=== PATIENT | male | born 1975 | race Caucasian/White ===

== ENCOUNTER 2025-05-10 19:09 | Inpatient (IN) | payer BC ==
--- NOTE | 2025-05-10 19:27 | P.CRDCN ---
History of Present Illness Consult date: 05/10/25 History of present illness: History of Present Illness: The patient is a 50-year-old male with a history of hypertension who presented with symptoms of chest discomfort. He started to have discomfort yesterday in the chest, the left arm and the jaw and subsequently got better but reoccurred today so he presented to [facility] and his EKG was consistent with inferior wall myocardial infarction. Patient denies any prior similar symptoms. He is asymptomatic at this time. He denies any dizziness or palpitation no peripheral edema, no PND or orthopnea. He is relatively active physically without any symptoms on a regular basis. He denies any prior similar symptoms and no history of PND orthopnea or peripheral edema. He smokes marijuana but no tobacco. He has a history of hypertension, no diabetes or documented hyperlipidemia. He is pain-free at this time Medications: Lotrel Review of Systems: Respiratory: No history of asthma, bronchitis or recent cough. GI: No nausea or vomiting . No history of peptic ulcer disease. No recent GI bleed. : No hematuria or dysuria. Nervous System: No stroke or seizure. Physical Examination: 50-year-old male, alert oriented no apparent distress,Blood pressure 130/70, Heart rate 80 Head: Normocephalic. Eyes: Sclerae nonicteric. Neck: Good carotid upstroke, no bruit, no jugular venous distention. Lungs: Clear to auscultation. Heart: Regular rate and rhythm, S1-S2, no S3, no rub. No murmur. Abdomen: Soft nontender, positive bowel sounds no organomegaly. Extremities: No edema, intact distal pulses. Labs: Pending EKG: Sinus mechanism with QS in [address] elevation of 1 to 1-1/2 mm and poor R wave progression Impression: 1. Acute inferior wall myocardial infarction, probably started yesterday 2. History of hypertension 3. Marijuana use Plan: 1. Proceed with emergent cardiac catheterization, the risks and the complications were discussed with the patient who is in full understanding and agreement 2. Obtain an echocardiogram with Doppler 3. Depending on the results of the testing further recommendations will be made 4. Thank you for this consult we will follow with you
[2025-05-10] MEDS: IV FLUID CONTINUATION 1,000 ML IV ONE (19:30)
[2025-05-10] MEDS: fentaNYL (PF) 50 MCG/ML 2 ML AMP IVP ONE (19:30)
[2025-05-10] MEDS: LIDOCAINE 1% INJ 10MG/ML (20 ML MDV) SQ ONE (19:34)
[2025-05-10] MEDS: VERAPAMIL SYRINGE (5 MG/10 ML) INTRAARTER ONE (19:35)
[2025-05-10] MEDS: HEPARIN SODIUM 1,000 UN/ML (10ML VL) IV ONE (19:40)
[2025-05-10] MEDS: PRASUGREL 10 MG TAB PO ONE (19:45)
[2025-05-10] MEDS: IOPAMIDOL-370 100ML BTL INJ ONE ×3 (19:50→20:48)
[2025-05-10] MEDS: MIDAZOLAM 2 MG/2 ML VIAL IVP ONE (20:22)
[2025-05-10] MEDS ORDERED: RX INFO: IV CONTRAST WAS GIVEN 1 EACH MISC MISCELLANE PRN (21:05)
[2025-05-10] MEDS ORDERED: ATROPINE SULFATE 0.1 MG/ML 10ML SYRINGE IV PRN (21:05)
[2025-05-10] MEDS ORDERED: MAG HYDROX/AL HYDROX/SIMETH 30 ML CUP PO PRN (21:05)
[2025-05-10] MEDS ORDERED: NITROGLYCERIN SL TABS 0.4 MG TAB SUBLINGUAL PRN (21:05)
--- NOTE | 2025-05-10 21:15 | P.CARDCATH ---
Date of Procedure: 05/10/25 Description of Procedure: Cardiac Catheterization: The patient is a 50-year-old male with a history of hypertension who presented to [facility] with an acute inferior wall myocardial infarction. He was transferred to [facility]. Recommendations were made regarding cardiac catheterization, the risks and the complications were discussed with the patient who is in full understanding and agreement. Procedure Description: Patient was brought to helper animal laboratory in fasting semi-sedated state after receiving Fentanyl and Benadryl achieiving moderate conscious sedated state. Using Xylocaine Anesthesia and modified Seldinger technique, a 6-English sheath was introduced in the right radial artery . Subsequently, selective coronary angiography was performed using a 5-English 3.5 bend left Yash catheter and 6 English AL 0.75 guiding catheter. Multiple views of the coronary artery including hemiaxial views were obtained. The 5 English pigtail catheter was used to cross the aortic valve and LVEDP was calculated. PCI: Using the 6 English AL 0.75 guiding catheter and after cannulating the right coronary ostium at the 0.014 BMW J-wire was advanced into the distal RCA. Subsequently 2.5 x 12 mm trek balloon was advanced and 1 inflation in the mid RCA at 8 whitney was done. The balloon was advanced distally and with the help of the balloon the wire was advanced into the PLV. An inflation with the balloon was performed at 8 whitney. Subsequently the balloon was removed and a 0.014 BMW J- wire with a microcatheter super cross was advanced and the wire was advanced into the PDA. The balloon was advanced over the PDA and 2 inflation at 8 whitney was done. Subsequently the balloon was removed and a [place] eye IVUS catheter was introduced and imaging was performed and revealed the distal lumen in the PLV of about 3 mm and in the RCA a 4 to 4.2 mm with mild to moderate calcifications. After removing the catheter a 2.75 x 28 mm Xience Skypoint stent was deployed in the distal RCA into the PLV at 16 whitney. After removing the balloon the wire in the PDA was removed. Repeat IVUS imaging was performed and subsequently a 4.0 x 38 mm Xience berhane point stent was deployed distally overlapping the first stent at 16 whitney and another 4.0 x 28 mm Xience berhane point was deployed in the proximal stent segment at 16 whitney. After removing the balloon repeat IVUS imaging was performed and subsequently 3.5 x 15 mm NC trek balloon was advanced and inflations in the distal segment of the stent at 10 whitney were done and after removing the balloon a 4.0 x 20 mm NC trek balloon was advanced and inflations in the mid and proximal RCA were done at 12 whitney. After the last inflation the wire was removed images were obtained and revealed stable successful stenting. Following that, catheter and sheath were removed. Hemostasis was obtained with deployment of vascular band . There was no immediate complication. Patient was returned to room in stable condition. Of note, the patient received a total of 9500 units of intravenous heparin as well as intra-arterial verapamil. He received an oral loading dose of prasugrel. His ACT was followed. He was pain-free at the end of the procedure. Findings: Left main: This is a large size vessel, bifurcating into LAD and left circumflex, left main has no obstructive disease LAD: This is a large size vessel, reaching to the apex giving rise to a large diagonal branch proximally. The LAD and the diagonal branch have no evidence of high-grade stenosis Left circumflex: This is a nondominant vessel, large in caliber, giving rise to 2 obtuse marginal branch. The left circumflex has mild intimal disease with no high-grade stenosis RCA: This is a large dominant vessel, bifurcating distally to PDA and PLV. The mid RCA has 80% stenosis. Distally at the bifurcation of the PDA and the PLV there is no forward flow. Retrograde filling was seen through collaterals from the LAD Left Ventriculogram: Not performed Hemodynamics: There was no gradient across the aortic valve, LVEDP was 25-28 mmHg Conclusion: 1. Severe stenosis in the mid RCA with total occlusion distally and contralateral collaterals 2. Mild disease in the left circumflex 3. Elevated LVEDP 4. Successful stenting of the proximal, mid and distal RCA with reduction of stenosis from 100% distally to less than 5% and in the midsegment from 80% to less than 5% with IVUS imaging and NJ-3 flow. Recommendations: The patient will continue on aspirin and prasugrel without any interruption for 1 year in addition to aggressive coronary risks modification, attempting to maintain LDL below 70 mg/dL. The findings and the recommendations were discussed with the patient and the family and they were in full understanding and agreement. Duration of sedation is 76 minutes.
[2025-05-10 21:16] LABS: Glucose,Whole Blood 112 mg/dL (70-110)
[2025-05-11] MEDS: ACETAMINOPHEN TAB 325 MG TAB PO PRN (00:33)
[2025-05-11] MEDS: ZOLPIDEM 5 MG TAB PO PRN (00:35)
[2025-05-11] MEDS: SODIUM CHLORIDE 0.9% 1,000 ML in EMPTY BAG 1 BAG IV SCH (00:36)
[2025-05-11 00:52] LABS: Basophils # (A) 0.05 10*3/uL (0.00-0.10); Basophils % (A) 0.5 %; Eosinophils # (A) 0.21 10*3/uL (0.04-0.35); Eosinophils % (A) 1.9 %; HCT 35.3 % (39.6-50.0); HGB 12.3 g/dL (13.0-17.0); Lymphocytes # (A) 2.01 10*3/uL (0.90-5.00); Lymphocytes % (A) 18.2 %; MCH 30.8 pg (27.0-32.0); MCHC 34.8 g/dL (32.0-37.0); MCV 88.3 fL (80.0-97.0); Monocytes # (A) 0.81 10*3/uL (0.20-1.00); Monocytes % (A) 7.3 %; Neutrophils # (A) 7.93 10*3/uL (1.80-7.70); Neutrophils % (A) 71.7 %; Platelet Count 263 10*3/uL (140-440); RBC 4.00 10*6/uL (4.40-5.60); RDW 13.1 % (11.5-14.5); WBC 11.05 10*3/uL (4.50-10.00)
[2025-05-11 01:42] LABS: African American GFR (CKD) >90 (>60 ml/min/1.73 sqM); Anion Gap 8 mmol/L; Blood Urea Nitrogen 6 mg/dL (9-20); Calcium 8.9 mg/dL (8.4-10.2); Carbon Dioxide 25 mmol/L (22-30); Chloride 103 mmol/L (98-107); Glucose 122 mg/dL (74-99); Magnesium 1.9 mg/dL (1.6-2.3); Non-African American GFR(CKD) >90 (>60 ml/min/1.73 sqM); Potassium 4.0 mmol/L (3.5-5.1); Sodium 136 mmol/L (137-145)
[2025-05-11 06:05] LABS: African American GFR (CKD) >90 (>60 ml/min/1.73 sqM); Anion Gap 8 mmol/L; Blood Urea Nitrogen 6 mg/dL (9-20); Calcium 8.9 mg/dL (8.4-10.2); Carbon Dioxide 25 mmol/L (22-30); Chloride 103 mmol/L (98-107); Glucose 109 mg/dL (74-99); Non-African American GFR(CKD) >90 (>60 ml/min/1.73 sqM); Potassium 3.7 mmol/L (3.5-5.1); Sodium 136 mmol/L (137-145)
[2025-05-11] MEDS ORDERED: Potassium Replacement Protocol 1 EACH MISC MISCELLANE PRN (07:07)
[2025-05-11] MEDS ORDERED: Magnesium Replacement Protocol 1 EACH MISC MISCELLANE PRN (07:07)
--- NOTE | 2025-05-11 07:27 | P.PN ---
Subjective Progress Note Date: 05/11/25 PROGRESS NOTE The patient is a 50-year-old male with a history of hypertension who presented with symptoms of chest discomfort. He started to have discomfort yesterday in the chest, the left arm and the jaw and subsequently got better but reoccurred today so he presented to [facility] and his EKG was consistent with inferior wall myocardial infarction. Patient denies any prior similar symptoms. He is asym ptomatic at this time. He denies any dizziness or palpitation no peripheral edema, no PND or orthopnea. He is relatively active physically without any symptoms on a regular basis. He denies any prior similar symptoms and no history of PND orthopnea or peripheral edema. He smokes marijuana but no tobacco. He has a history of hypertension, no diabetes or documented hyperlipidemia. He is pain-free at this time May 11: The patient feels well this morning, he denies any chest discomfort, dizziness or palpitations. Hemodynamically he is stable. He is status post stenting of the proximal mid and distal RCA. He has no evidence of ventricular arrhythmia. His urine output has been good. He has no dyspnea. He continues to be in sinus mechanism Medications: Aspirin, Effient 10 mg daily, metoprolol tartrate 25 mg twice a day, bupropion 300 mg daily, Lipitor 80 mg daily, Protonix PHYSICAL EXAMINATION: Blood pressure 129/87 heart rate 89 LUNGS: Clear to auscultation HEART: Regular rate and rhythm, S1, S2. No S3. No systolic murmur ABDOMEN: Soft, nontender, no organomegaly EXTREMETIES: No edema, right radial pulse intact LAB: Potassium 3.7, BUN 6, creatinine 0.74 IMPRESSION: 1. Status post acute inferior wall myocardial infarction and stenting of the RCA 2. History of hypertension PLAN: 1. Obtain an echocardiogram with Doppler 2. Follow blood pressure and adjust medical regimen 3. Increase physical activity 4. Transfer to telemetry 5. Depending on his progress further recommendations will be made Objective - Vital Signs Vital signs: Vital Signs Temp 98.9 F 05/11/25 04:00 Pulse 89 05/11/25 07:00 Resp 20 05/11/25 07:00 BP 129/87 05/11/25 07:00 Pulse Ox 94 L 05/11/25 07:00 FiO2 Intake & Output 05/10/25 05/11/25 05/11/25 18:59 06:59 18:59 Intake Total 1664 Output Total 1200 650 Balance 464 -650 Weight 107.9 kg Intake: IV 800 Intake, IV Titration 864 Amount Sodium Chloride 0.9% 1, 864 000 ml In Empty Bag 1 bag @ 1 ML/KG/HR 108 mls/hr IV .Q9H16M [facility] Rx#: [id number] Output: Urine 1200 650 Other: Voiding Method Urinal # Voids 0 1 - Labs CBC & Chem 7: 05/11/25 00:43 05/11/25 05:23 Labs: Abnormal Lab Results - Last 24 Hours (Table) 05/10/25 05/11/25 05/11/25 Range/Units 21:14 00:43 00:43 WBC 11.05 H (4.50-10.00) 10*3/uL RBC 4.00 L (4.40-5.60) 10*6/uL Hgb 12.3 L (13.0-17.0) g/dL Hct 35.3 L (39.6-50.0) % Neutrophils # 7.93 H (1.80-7.70) 10*3/uL Sodium 136 L (137-145) mmol/L BUN 6 L (9-20) mg/dL Glucose 122 H (74-99) mg/dL POC Glucose (mg/dL) 112 H (70-110) mg/dL 05/11/25 Range/Units 05:23 WBC (4.50-10.00) 10*3/uL RBC (4.40-5.60) 10*6/uL Hgb (13.0-17.0) g/dL Hct (39.6-50.0) % Neutrophils # (1.80-7.70) 10*3/uL Sodium 136 L (137-145) mmol/L BUN 6 L (9-20) mg/dL Glucose 109 H (74-99) mg/dL POC Glucose (mg/dL) (70-110) mg/dL
[2025-05-11] MEDS: buPROPion XL 300 MG TAB.ER.24H PO SCH (08:59)
[2025-05-11] MEDS: METOPROLOL TARTRATE 25 MG TAB PO SCH (08:59)
[2025-05-11] MEDS: MAGNESIUM SULFATE-D5W PMX 1 GM in DEXTROSE/WATER 1 100ML.BAG IVPB ONE (08:59)
[2025-05-11] MEDS: POTASSIUM CHLORIDE ER 20 MEQ TAB.ER PO SCH (08:59)
[2025-05-11] MEDS: ASPIRIN 81 MG PO SCH (08:59)
[2025-05-11] MEDS ORDERED: NON FORMULARY DRUG (Omega-3/Dha/Epa/Fish Oil [Fish Oil 1,000 Mg Softgel] 1 EACH Capsule) PO SCH (09:00)
[2025-05-11] MEDS: PANTOPRAZOLE 40 MG TABLET PO SCH (09:00)
[2025-05-11] MEDS ORDERED: NON FORMULARY DRUG (Vitamin B Complex/Folic Acid [Vitamin B Complex] 0.4 MG Tablet) PO SCH (09:00)
[2025-05-11] MEDS: PRASUGREL 10 MG TAB PO SCH (10:18)
--- NOTE | 2025-05-11 11:33 | CA ---
Transthoracic Echo Report Name: Rai Garvin Age: 50 Gender: M : 1975 Exam Date: 05/11/2025 07:29 Exam Location: [facility] Ht (in): 68 Wt (lb): 238 Ordering Physician: Irene De La Rosa MD ([id number]) Attending/Referring Phys: Boiler Coverer Cristina Cotton RDCS Procedure CPT: Indications: [place] Cardiac Hx: Technical Quality: Fair Contrast 1: Total Dose (mL): Contrast 2: Total Dose (mL): MEASUREMENTS (Male / Female) Normal Values 2D ECHO LV Diastolic Diameter PLAX 5.4 cm 4.2 - 5.9 / 3.9 - 5.3 cm LV Systolic Diameter PLAX 3.5 cm IVS Diastolic Thickness 0.9 cm 0.6 - 1.0 / 0.6 - 0.9 cm LVPW Diastolic Thickness 1.1 cm 0.6 - 1.0 / 0.6 - 0.9 cm LV Relative Wall Thickness 0.4 RV Internal Dim ED PLAX 2.8 cm LA Systolic Diameter LX 3.9 cm 3.0 - 4.0 / 2.7 - 3.8 cm LV Diastolic Volume MOD BP 137.8 cm??? 67 - 155 / 56 - 104 cm??? LV Systolic Volume MOD BP 75.9 cm??? - 58 / 19 - 49 cm??? LV Ejection Fraction MOD BP 45.0 % >= 55 % LV Cardiac Index MOD BP 2244.9 cm???/min???m??? LV Diastolic Volume MOD 4C 121.0 cm??? LV Systolic Volume MOD 4C 66.6 cm??? LV Ejection Fraction MOD 4C 44.9 % LV Cardiac Index MOD 4C 1969.0 cm???/min???m??? LV Diastolic Length 4C 8.8 cm LV Systolic Length 4C 7.3 cm LV Diastolic Volume MOD 2C 117.9 cm??? LV Systolic Volume MOD 2C 67.2 cm??? LV Ejection Fraction MOD 2C 43.0 % LV Cardiac Index MOD 2C 1836.5 cm???/min???m??? LV Diastolic Length 2C 8.4 cm LV Systolic Length 2C 6.9 cm LA Volume 49.0 cm??? 18 - 58 / 22 - 52 cm??? LA Volume Index 21.1 cm???/m??? 16 - 28 cm???/m??? M-MODE Aortic Root Diameter MM 3.6 cm AV Cusp Separation MM 2.5 cm DOPPLER AV Peak Velocity 156.4 cm/s AV Peak Gradient 9.8 mmHg AV Mean Velocity 107.3 cm/s AV Mean Gradient 5.1 mmHg AV Velocity Time Integral 26.2 cm MV Area PHT 2.7 cm??? Mitral E Point Velocity 84.8 cm/s Mitral A Point Velocity 104.1 cm/s Mitral E to A Ratio 0.8 MV Deceleration Time 276.5 ms FINDINGS Left Ventricle Left ventricular ejection fraction is estimated at 55-60 %. Left ventricular cavity size normal. Moderately increased left ventricular systolic volume. No obvious regional wall motion abnormalities. Right Ventricle Normal right ventricular size. Unable to estimate the right ventricular systolic pressure. Right Atrium Normal right atrial size. No right atrial thrombus or mass seen. Left Atrium Normal left atrial size. No left atrial thrombus or mass present. Mitral Valve Structurally normal mitral valve. No evidence for mitral valve prolapse. No mitral stenosis. Trace mitral regurgitation. Aortic Valve Trileaflet aortic valve. No aortic valve stenosis or regurgitation. Tricuspid Valve Structurally normal tricuspid valve. No tricuspid regurgitation. Pulmonic Valve Pulmonic valve not well visualized. Trace pulmonic regurgitation. Pericardium No pericardial effusion. Aorta Normal size aortic root and proximal ascending aorta. CONCLUSIONS Normal biventricular systolic function No significant valvular abnormalities noted No pericardial effusion Previewed by: Dr. Norman Solis MD (Electronically Signed) Final Date: 11 May 2025 11:32
[2025-05-11 11:56] LABS: Cholesterol 208.00 mg/dL (0.00-200.00); HDL Cholesterol 34.60 mg/dL (40.00-60.00); LDL Cholesterol,Calculated 139.4 mg/dL (0.0-131.0); Triglycerides 170.00 mg/dL (0.00-149.00); VLDL Calculation 34.00 mg/dL (5.00-40.00)
[2025-05-11 13:34] VITALS: BMI 36.1
--- NOTE | 2025-05-11 13:41 | P.HPIM ---
History of Present Illness H&P Date: 05/11/25 History of present illness; patient 50-year-old gentleman past medical history significant for hypertension who initially presented to [facility] for chest pain. Patient stated that he was all right yesterday when he started having chest pain that was central location, sharp, radiating down left arm and jaw,no aggravating or relieving factor associated with this chest pain. There was no complaint of orthopnea or PND. There was no complaint of shortness of breath at that time. There was no episode of diaphoresis during this episode of chest pain. Because of chest pain, patient presented to [facility], where patient EKG done showing ST elevation in inferior leads. Patient was transferred to [facility] for cardiac catheterization. Patient had a cardiac cath showing Severe stenosis in the mid RCA with total occlusion distally and contralateral collaterals,Mild disease in the left circumflex with Successful stenting of the proximal, mid and distal RCA with reduction of stenosis from 100% distally to less than 5% and in the midsegment from 80% to less than 5% with IVUS imaging and NJ-3 flow. Patient admitted to internal medicine service REVIEW OF SYSTEMS: CONSTITUTIONAL: No fever, no malaise, no fatigue. HEENT: No recent visual problems or hearing problems. Denied any sore throat. CARDIOVASCULAR: Mentioned above PULMONARY: No shortness of breath, no cough, no hemoptysis. GASTROINTESTINAL: No diarrhea, no nausea, no vomiting, no abdominal pain. NEUROLOGICAL: No headaches, no weakness, no numbness. HEMATOLOGICAL: Denies any bleeding or petechiae. GENITOURINARY: Denies any burning micturition, frequency, or urgency. MUSCULOSKELETAL/RHEUMATOLOGICAL: Denies any joint pain, swelling, or any muscle pain. ENDOCRINE: Denies any polyuria or polydipsia. The rest of the 14-point review of systems is negative. PHYSICAL EXAMINATION: GENERAL: The patient is alert and oriented x3, not in any acute distress. Well developed, well nourished. HEENT: Pupils are round and equally reacting to light. EOMI. No scleral icterus. No conjunctival pallor. Normocephalic, atraumatic. No pharyngeal erythema. No thyromegaly. CARDIOVASCULAR: S1 and S2 present. No murmurs, rubs, or gallops. PULMONARY: Chest is clear to auscultation, no wheezing or crackles. ABDOMEN: Soft, nontender, nondistended, normoactive bowel sounds. No palpable organomegaly. MUSCULOSKELETAL: No joint swelling or deformity. EXTREMITIES: No cyanosis, clubbing, or pedal edema. NEUROLOGICAL: Gross neurological examination did not reveal any focal deficits. SKIN: No rashes. Assessment and plan ST elevation RI Hypertension Monitor vital signs Monitor CBC Monitor CMP Continue telemetry monitoring S/p cardiac cath showing Severe stenosis in the mid RCA with total occlusion distally and contralateral collaterals,Mild disease in the left circumflex with Successful stenting of the proximal, mid and distal RCA with reduction of stenosis from 100% distally to less than 5% and in the midsegment from 80% to less than 5% with IVUS imaging and NJ-3 flow Ordered aspirin, Effient Ordered Lipitor Ordered 2D echo Cardiology following Labs and medication were reviewed.. Continue same treatment. Continue with symptomatic treatment. Resume home medication. Monitor labs and vitals. DVT and GI prophylaxis. Further recommendations as per clinical course of the patient Dictation was produced using [employer] dictation software. please excuse any grammatical, word or spelling errors. Past Medical History Past Medical History: Hyperlipidemia, Hypertension Additional Past Medical History / Comment(s): Pin in left 5th digit from [facility]. Drug abuse with cocaine, cocaine last use in 2021. ETOH currently drinking 6 drinks per week, beer. 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 History of Any Multi-Drug Resistant Organisms: None Reported Past Surgical History: Hernia Repair, Orthopedic Surgery Additional Past Surgical History / Comment(s): Umbilical hernia repair. Past Anesthesia/Blood Transfusion Reactions: No Reported Reaction Past Psychological History: ADD/ADHD, Anxiety, Depression Smoking Status: Former smoker Past Alcohol Use History: Abuse, Heavy Additional Past Alcohol Use History / Comment(s): Pt has history of ETOH abuse, currently drinking 6 beers per week Past Drug Use History: Cocaine, Marijuana Additional Drug Use History / Comment(s): Last use of cocaine was in 2021, currently smokes marijuana occasionally - Past Family History Mother Family Medical History: Chest Pain / Angina, Coronary Artery Disease (CAD), Hyperlipidemia, Hypertension, Myocardial Infarction (RI), Respiratory Disorder Additional Family Medical History / Comment(s): Patient states that mother from a RI in nov 2024. Medications and Allergies Home Medications Medication Instructions Recorded Confirmed Type Cetirizine HCl [Zyrtec] 10 mg PO DAILY 05/11/25 05/11/25 History [place]-3 Acid Ethyl Esters [Lovaza] 1 gm PO DAILY 05/11/25 05/11/25 History Omeprazole [PriLOSEC] 40 mg PO DAILY 05/11/25 05/11/25 History Vitamin B Complex 1 cap PO DAILY 05/11/25 05/11/25 History amLODIPine BESYLATE/BENAZEPRIL 1 cap PO DAILY 05/11/25 05/11/25 History [amLODIPine BESYLATE/BENAZEPRIL 10-40 mg] buPROPion HCL [buPROPion HCL Xl] 300 mg PO DAILY 05/11/25 05/11/25 History Allergies Allergy/AdvReac Type Severity Reaction Status Date / Time No Known Allergies Allergy Verified 05/11/25 09:33 Physical Exam Vitals: Vital Signs Temp Pulse Pulse Resp BP BP Pulse Ox 05/11/25 12:00 98.3 F 87 20 129/82 94 L 05/11/25 11:00 89 19 129/78 90 L 05/11/25 10:00 89 20 132/78 93 L 05/11/25 09:00 90 31 H 132/96 94 L 05/11/25 08:00 98 F 93 23 123/78 93 L 05/11/25 07:00 89 20 129/87 94 L 05/11/25 06:00 94 14 126/76 94 L 05/11/25 05:00 88 20 133/76 92 L 05/11/25 04:00 98.9 F 86 19 127/80 91 L 05/11/25 03:00 87 18 122/76 93 L 05/11/25 02:00 93 21 120/80 91 L 05/11/25 01:00 93 25 H 123/76 93 L 05/11/25 00:39 90 15 123/76 95 05/11/25 00:00 98.4 F 94 17 129/78 97 05/10/25 23:00 85 15 127/78 97 05/10/25 22:45 92 20 128/81 97 05/10/25 22:30 93 18 149/125 95 05/10/25 22:19 90 12 149/125 97 05/10/25 22:00 93 15 131/87 96 05/10/25 21:45 94 12 132/86 95 05/10/25 21:30 91 11 L 127/81 95 05/10/25 21:22 98.5 F 92 15 126/90 96 05/10/25 21:15 92 25 H 126/90 Intake and Output 05/10/25 05/11/25 05/11/25 22:59 06:59 14:59 Intake Total 908 756 580 Output Total 102 706 9264 Balance 108 356 -570 Intake: IV 800 Intake, IV Titration 108 756 100 Amount Magnesium Sulfate-D5w Pmx 100 1 gm In Dextrose/Water 1 100ml.bag @ 100 mls/hr IVPB ONCE ONE Rx#: [id number] Sodium Chloride 0.9% 1, 108 756 000 ml In Empty Bag 1 bag @ 1 ML/KG/HR 108 mls/hr IV .Q9H16M [facility] Rx#: [id number] Oral 480 Output: Urine 956 244 5661 Other: Voiding Method Urinal Urinal Urinal # Voids 1 0 1 Weight 108 kg 107.9 kg 107.9 kg Results CBC & Chem 7: 05/11/25 00:43 05/11/25 05:23 Labs: Abnormal Lab Results - Last 24 Hours (Table) 05/10/25 05/11/25 05/11/25 Range/Units 21:14 00:43 00:43 WBC 11.05 H (4.50-10.00) 10*3/uL RBC 4.00 L (4.40-5.60) 10*6/uL Hgb 12.3 L (13.0-17.0) g/dL Hct 35.3 L (39.6-50.0) % Neutrophils # 7.93 H (1.80-7.70) 10*3/uL Sodium 136 L (137-145) mmol/L BUN 6 L (9-20) mg/dL Glucose 122 H (74-99) mg/dL POC Glucose (mg/dL) 112 H (70-110) mg/dL Triglycerides (0.00-149.00) mg/dL Cholesterol (0.00-200.00) mg/dL LDL Cholesterol, Calc (0.0-131.0) mg/dL HDL Cholesterol (40.00-60.00) mg/dL 07/15/25 Range/Units 05:23 WBC (4.50-10.00) 10*3/uL RBC (4.40-5.60) 10*6/uL Hgb (13.0-17.0) g/dL Hct (39.6-50.0) % Neutrophils # (1.80-7.70) 10*3/uL Sodium 136 L (137-145) mmol/L BUN 6 L (9-20) mg/dL Glucose 109 H (74-99) mg/dL POC Glucose (mg/dL) (70-110) mg/dL Triglycerides 170.00 H (0.00-149.00) mg/dL Cholesterol 208.00 H (0.00-200.00) mg/dL LDL Cholesterol, Calc 139.4 H (0.0-131.0) mg/dL HDL Cholesterol 34.60 L (40.00-60.00) mg/dL Thrombosis Risk Factor Assmnt - Choose All That Apply Each Factor Represents 1 point: Acute RI, Age 41-60 years Other Risk Factors: No Other congenital or acquired thrombophilia - If yes, enter type in comment: No Thrombosis Risk Factor Assessment Total Risk Factor Score: 2 Thrombosis Risk Factor Assessment Level: Low Risk
[2025-05-11] MEDS: ATORVASTATIN 80 MG TAB PO SCH (20:39)
[2025-05-12 04:11] LABS: African American GFR (CKD) >90 (>60 ml/min/1.73 sqM); Anion Gap 9 mmol/L; Blood Urea Nitrogen 8 mg/dL (9-20); Calcium 9.5 mg/dL (8.4-10.2); Carbon Dioxide 23 mmol/L (22-30); Chloride 103 mmol/L (98-107); Glucose 102 mg/dL (74-99); Magnesium 2.2 mg/dL (1.6-2.3); Non-African American GFR(CKD) >90 (>60 ml/min/1.73 sqM); Potassium 4.3 mmol/L (3.5-5.1); Sodium 135 mmol/L (137-145)
--- NOTE | 2025-05-12 07:27 | P.PN ---
Subjective Progress Note Date: 05/12/25 PROGRESS NOTE The patient is a 50-year-old male with a history of hypertension who presented with symptoms of chest discomfort. He started to have discomfort yesterday in the chest, the left arm and the jaw and subsequently got better but reoccurred today so he presented to [facility] and his EKG was consistent with inferior wall myocardial infarction. Patient denies any prior similar symptoms. He is asym ptomatic at this time. He denies any dizziness or palpitation no peripheral edema, no PND or orthopnea. He is relatively active physically without any symptoms on a regular basis. He denies any prior similar symptoms and no history of PND orthopnea or peripheral edema. He smokes marijuana but no tobacco. He has a history of hypertension, no diabetes or documented hyperlipidemia. He is pain-free at this time May 11: The patient feels well this morning, he denies any chest discomfort, dizziness or palpitations. Hemodynamically he is stable. He is status post stenting of the proximal mid and distal RCA. He has no evidence of ventricular arrhythmia. His urine output has been good. He has no dyspnea. He continues to be in sinus mechanism May 12: The patient feels well this morning, he continues to be in sinus mechanism, he denies any chest discomfort, dizziness or palpitations. Hemodynamically he is stable. He has been ambulating in the room without difficulties. His echoca rdiogram showed an ejection fraction of 55 to 60% with no significant valvular abnormalities. Medications: Aspirin, Effient 10 mg daily, metoprolol tartrate 25 mg twice a day, bupropion 300 mg daily, Lipitor 80 mg daily, Protonix PHYSICAL EXAMINATION: Blood pressure 107/70 heart rate 90 LUNGS: Clear to auscultation HEART: Regular rate and rhythm, S1, S2. No S3. No systolic murmur ABDOMEN: Soft, nontender, no organomegaly EXTREMETIES: No edema, LAB: Potassium 4.3, BUN 8, creatinine 0.79 IMPRESSION: 1. Status post acute inferior wall myocardial infarction and stenting of the RCA 2. History of hypertension PLAN: 1. Increase physical activity 2. Probable discharge home today and follow-up as an outpatient Objective - Vital Signs Vital signs: Vital Signs Temp 98.0 F 05/12/25 05:09 Pulse 93 05/12/25 05:09 Resp 17 05/12/25 05:09 BP 107/72 05/12/25 05:09 Pulse Ox 92 L 05/12/25 05:09 FiO2 Intake & Output 05/11/25 05/12/25 05/12/25 18:59 06:59 18:59 Intake Total 820 Output Total 1800 Balance -980 Weight 107.9 kg 105.7 kg Intake: Intake, IV Titration 100 Amount Magnesium Sulfate-D5w Pmx 100 1 gm In Dextrose/Water 1 100ml.bag @ 100 mls/hr IVPB ONCE ONE Rx#: [id number] Oral 720 Output: Urine 1800 Other: Voiding Method Urinal Toilet # Voids 1 2 # Bowel Movements 0 - Labs CBC & Chem 7: 05/11/25 00:43 05/12/25 03:17 Labs: Abnormal Lab Results - Last 24 Hours (Table) 05/11/25 05/12/25 Range/Units 05:23 03:17 Sodium 135 L (137-145) mmol/L BUN 8 L (9-20) mg/dL Glucose 102 H (74-99) mg/dL Triglycerides 170.00 H (0.00-149.00) mg/dL Cholesterol 208.00 H (0.00-200.00) mg/dL LDL Cholesterol, Calc 139.4 H (0.0-131.0) mg/dL HDL Cholesterol 34.60 L (40.00-60.00) mg/dL
[2025-05-12 08:35] VITALS: BP 118/93; PULSE 89; RESP 18; TEMP 98.2
--- NOTE | 2025-05-12 13:58 | P.DS ---
Providers Date of admission: 05/10/25 19:17 Expected date of discharge: 05/12/25 Attending physician: Russel Black Consults: 05/10/25 21:05 Consult Physician Routine Consulting Provider: [facility] Consult Reason/Comments: Post Interventional Patient Do you want consulting provider notified?: Already Contacted Primary care physician: SILVERIO Sotomayor Hospital Course: Discharge diagnoses; ST elevation IN Hypertension Hospital course; 10-year-old gentleman past medical history significant for hypertension who initially presented to [facility] for chest pain. Patient stated that he was all right yesterday when he started having chest pain that was central location, sharp, radiating down left arm and jaw,no aggravating or relieving factor associated with this chest pain. There was no complaint of orthopnea or PND. There was no complaint of shortness of breath at that time. There was no episode of diaphoresis during this episode of chest pain. Because of chest pain, patient presented to [facility], where patient EKG done showing ST elevation in inferior leads. Patient was transferred to [facility] for cardiac catheterization. Patient had a cardiac cath showing Severe stenosis in the mid RCA with total occlusion distally and contralateral collaterals,Mild disease in the left circumflex with Successful stenting of the proximal, mid and distal RCA with reduction of stenosis from 100% distally to less than 5% and in the midsegment from 80% to less than 5% with IVUS imaging and NJ-3 flow. Patient admitted to internal medicine service 05/12. Patient seen and examined. No acute issues overnight. Cardiology cleared the patient for discharge.Being discharged on aspirin, Effient, Lipitor, Lopressor, statin, all prescription given by cardiology PHYSICAL EXAMINATION: GENERAL: The patient is alert and oriented x3, not in any acute distress. Well developed, well nourished. HEENT: Pupils are round and equally reacting to light. EOMI. No scleral icterus. No conjunctival pallor. Normocephalic, atraumatic. No pharyngeal erythema. No thyromegaly. CARDIOVASCULAR: S1 and S2 present. No murmurs, rubs, or gallops. PULMONARY: Chest is clear to auscultation, no wheezing or crackles. ABDOMEN: Soft, nontender, nondistended, normoactive bowel sounds. No palpable organomegaly. MUSCULOSKELETAL: No joint swelling or deformity. EXTREMITIES: No cyanosis, clubbing, or pedal edema. NEUROLOGICAL: Gross neurological examination did not reveal any focal deficits. SKIN: No rashes. Dictation was produced using [employer] dictation software. please excuse any grammatical, word or spelling errors. Patient Condition at Discharge: Good Plan - Discharge Summary Discharge Rx Participant: Yes New Discharge Prescriptions: New Prasugrel [Effient] 10 mg PO DAILY #90 tab Atorvastatin [Lipitor] 80 mg PO HS #90 tab Nitroglycerin Sl Tabs [Nitrostat] 0.4 mg SUBLINGUAL Q5M PRN #25 tab PRN Reason: Chest Pain Aspirin 81 mg PO DAILY tab Metoprolol Tartrate [Lopressor] 25 mg PO BID #180 tab Continue buPROPion HCL [buPROPion HCL Xl] 300 mg PO DAILY [place]-3 Acid Ethyl Esters [Lovaza] 1 gm PO DAILY Vitamin B Complex 1 cap PO DAILY Omeprazole [PriLOSEC] 40 mg PO DAILY Cetirizine HCl [Zyrtec] 10 mg PO DAILY Discontinued amLODIPine BESYLATE/BENAZEPRIL [amLODIPine BESYLATE/BENAZEPRIL 10-40 mg] 1 cap PO DAILY Discharge Medication List Cetirizine HCl [Zyrtec] 10 mg PO DAILY 05/11/25 [History] [place]-3 Acid Ethyl Esters [Lovaza] 1 gm PO DAILY 05/11/25 [History] Omeprazole [PriLOSEC] 40 mg PO DAILY 05/11/25 [History] Vitamin B Complex 1 cap PO DAILY 05/11/25 [History] buPROPion HCL [buPROPion HCL Xl] 300 mg PO DAILY 05/11/25 [History] Aspirin 81 mg PO DAILY tab 05/12/25 [Rx] Atorvastatin [Lipitor] 80 mg PO HS #90 tab 05/12/25 [Rx] Metoprolol Tartrate [Lopressor] 25 mg PO BID #180 tab 05/12/25 [Rx] Nitroglycerin Sl Tabs [Nitrostat] 0.4 mg SUBLINGUAL Q5M PRN #25 tab 05/12/25 [Rx] Prasugrel [Effient] 10 mg PO DAILY #90 tab 05/12/25 [Rx] Follow up Appointment(s)/Referral(s): Irene De La Rosa MD [STAFF PHYSICIAN] - 1 Week Patient Instructions/Handouts: Heart Attack (DC), Chest Pain (ED), Heart Catheterization (DC), After Radial Heart Catheterization (GEN) Discharge Disposition: HOME SELF-CARE
== END 2025-05-12 11:10 | disposition home or self-care (01) | DRG 322 ==
LOC: 2SICU 19:17
PROVIDERS: ADMIT Hospitalist; ATTEND Hospitalist
PROC: B2111ZZ Fluoroscopy of Multiple Coronary Arteries using Low Osmolar Contrast (ICD-10-PCS; 2025-05-10)
PROC: 027035Z Dilation of Coronary Artery, One Artery with Two Drug-eluting Intraluminal Devices, Percutaneous Approach (ICD-10-PCS; principal; 2025-05-10 19:14)
PROC: B241ZZ3 Ultrasonography of Multiple Coronary Arteries, Intravascular (ICD-10-PCS; 2025-05-10 19:14)
PROC: 4A023N7 Measurement of Cardiac Sampling and Pressure, Left Heart, Percutaneous Approach (ICD-10-PCS; 2025-05-10 19:14)
DX: I21.19 ST elevation (STEMI) myocardial infarction involving other coronary artery of inferior wall (principal); E78.5 Hyperlipidemia, unspecified; F32.A Depression, unspecified; I10 Essential (primary) hypertension; I25.10 Atherosclerotic heart disease of native coronary artery without angina pectoris; F41.9 Anxiety disorder, unspecified; F90.9 Attention-deficit hyperactivity disorder, unspecified type; I25.2 Old myocardial infarction; Z79.899 Other long term (current) drug therapy; Z82.49 Family history of ischemic heart disease and other diseases of the circulatory system; Z87.891 Personal history of nicotine dependence; Z86.59 Personal history of other mental and behavioral disorders; Z87.19 Personal history of other diseases of the digestive system
CPT/HCPCS: 80048; 80061; 83735; 85025; 92978; 93306; 93458